=== PATIENT | male | born 1960 | race Native Hawaiian/Other Pacific Islander ===

== ENCOUNTER 2018-06-11 22:59 | Emergency (ER) | payer SELFPAY ==
[2018-06-12 01:44] LABS: Basophils # (Auto) 0.1 K/mm3 (0.0-0.1); Basophils % (Auto) 0.8 % (0.0-1.8); Eosinophils # (Auto) 0.4 K/mm3 (0.0-0.4); Eosinophils % (Auto) 4.8 % (0.0-4.3); Hematocrit 43.3 % (35.5-45.6); Hemoglobin 14.4 gm/dl (11.8-15.2); Lymphocytes # (Auto) 3.8 K/mm3 (1.2-5.4); Mean Corpuscular HGB Conc 33 % (32-34); Mean Corpuscular Hemoglobin 30 pg (28-32); Mean Corpuscular Volume 90 fl (84-94); Monocytes # (Auto) 0.6 K/mm3 (0.0-0.8); Monocytes % (Auto) 7.2 % (0.0-7.3); Red Blood Count 4.84 M/mm3 (3.65-5.03); Red Cell Distribution Width 13.8 % (13.2-15.2)
[2018-06-12 02:20] LABS: BUN/Creatinine Ratio 21; Blood Urea Nitrogen 15 mg/dL (9-20); Calcium 9.3 mg/dL (8.4-10.2); Hemolysis Index 9
--- NOTE | 2018-06-12 02:30 | Cat Scan Report ---
FINAL REPORT EXAM: CT HEAD/BRAIN WO CON HISTORY: headache TECHNIQUE: Routine axial imaging was obtained of the brain without IV contrast. FINDINGS: The ventricular system is appropriate in size and is symmetric. There is no evidence of acute stroke or hemorrhage. There are no extra-axial fluid collections. Visualized sinuses reveal mild mucosal thickening in the left maxillary sinus. The mastoid air cells are well pneumatized. The calvarium appears intact. IMPRESSION: No acute intracranial process. Mild mucosal thickening in the left maxillary sinus.
[2018-06-12 02:31] LABS: Platelet Count 131 K/mm3 (140-440)
--- NOTE | 2018-06-12 07:02 | Emergency Department Report ---
ED General Adult HPI - General Chief complaint: Hyperglycemia Stated complaint: BLOOD PRESURE UP Time Seen by Provider: 06/12/18 06:55 Source: patient Mode of arrival: Ambulatory Limitations: No Limitations - History of Present Illness Initial comments: Patient is 58 years old male with past medical history of diabetes hypertension and hyperlipidemia. Patient presented to the ER complaining of headache, increased blood pressure and increased blood sugar. Patient stated that he is out of his medication for the last 2 weeks because he does not have a primary care doctor. Denied any chest pain, shortness of breath, weakness, numbness or tingling sensation. Patient denied any bowel or bladder incontinence. Patient also denied any abdominal pain, nausea or vomiting. Severity scale (0 -10): 3 - Related Data Allergies Allergy/AdvReac Type Severity Reaction Status Date / Time No Known Allergies Allergy Unverified 06/12/18 01:17 ED Review of Systems ROS: Stated complaint: BLOOD PRESURE UP Other details as noted in HPI Comment: All other systems reviewed and negative Constitutional: denies: chills ENT: denies: ear pain Respiratory: denies: cough, orthopnea, shortness of breath, SOB with exertion, SOB at rest, wheezing Cardiovascular: denies: chest pain, palpitations, dyspnea on exertion, orthopnea , syncope, paroxysmal nocturnal dyspnea Gastrointestinal: denies: abdominal pain, nausea, vomiting, diarrhea, constipation, hematemesis, melena Neurological: headache. denies: weakness, numbness, paresthesias, confusion, abnormal gait, vertigo ED Past Medical Hx - Past Medical History Hx Hypertension: Yes Hx Diabetes: Yes - Surgical History Past Surgical History?: Yes Additional Surgical History: Left leg - Social History Smoking Status: Never Smoker Substance Use Type: None ED Physical Exam - General Limitations: No Limitations General appearance: alert, in no apparent distress - Head Head exam: Present: atraumatic, normocephalic, normal inspection - Eye Eye exam: Present: normal appearance, PERRL - ENT ENT exam: Present: normal exam, normal orophraynx, mucous membranes moist - Neck Neck exam: Present: normal inspection, full ROM. Absent: tenderness, meningismus, lymphadenopathy, thyromegaly - Respiratory Respiratory exam: Present: normal lung sounds bilaterally. Absent: respiratory distress, wheezes, rales, rhonchi, stridor, chest wall tenderness, accessory muscle use, decreased breath sounds, prolonged expiratory - Cardiovascular Cardiovascular Exam: Present: regular rate, normal rhythm, normal heart sounds - GI/Abdominal GI/Abdominal exam: Present: soft, normal bowel sounds. Absent: distended, tenderness, guarding, rebound, rigid, organomegaly, mass, bruit, pulsatile mass , hernia - Extremities Exam Extremities exam: Present: normal inspection, full ROM, normal capillary refill. Absent: pedal edema, calf tenderness - Back Exam Back exam: Present: normal inspection, full ROM - Neurological Exam Neurological exam: Present: alert, oriented X3, CN II-XII intact, normal gait, reflexes normal - Skin Skin exam: Present: warm, intact, normal color ED Course Vital Signs 06/11/18 06/12/18 06/12/18 23:05 00:59 05:39 Temperature 98.1 F 98.1 F 97.8 F Pulse Rate 66 65 54 L Respiratory 16 18 18 Rate Blood Pressure 214/82 186/77 Blood Pressure 199/76 [Left] O2 Sat by Pulse 98 98 97 Oximetry ED Medical Decision Making - Lab Data Result diagrams: 06/12/18 01:27 06/12/18 01:27 - EKG Data -: EKG Interpreted by [place] EKG shows normal: sinus rhythm Rate: normal - EKG Data Interpretation: no acute changes - Radiology Data Radiology results: report reviewed Referring Physician: TEVIN SHARMA Patient Name: IVAN BROWN Date of : 1960 Sex: Male Report Date: 2018-06-12 Report Status: [place] [address] Cat Scan Report Signed Patient: IVAN BROWN MR#: [id number] : 1960 Acct:[id number] Age/Sex: 58 / M ADM Date: 06/11/18 Loc: ED Attending Dr: Ordering Physician: TEVIN SHARMA MD Date of Service: 06/12/18 Procedure(s): CT head/brain wo con Accession Number(s): [id number] cc: TEVIN SHARMA MD FINAL REPORT EXAM: CT HEAD/BRAIN WO CON HISTORY: headache TECHNIQUE: Routine axial imaging was obtained of the brain without IV contrast. FINDINGS: The ventricular system is appropriate in size and is symmetric. There is no evidence of acute stroke or hemorrhage. There are no extra-axial fluid collections. Visualized sinuses reveal mild mucosal thickening in the left maxillary sinus. The mastoid air cells are well pneumatized. The calvarium appears intact. IMPRESSION: No acute intracranial process. Mild mucosal thickening in the left maxillary sinus. Transcribed By: RB Dictated By: AMY MARINELLI MD Electronically Authenticated By: AMY MARINELLI MD Signed Date/Time: 06/12/18228 DD/ 8 TD/TT: 06/12/18228 Critical care attestation.: If time is entered above; I have spent that time in minutes in the direct care of this critically ill patient, excluding procedure time. ED Disposition Clinical Impression: Malignant hypertension, Hyperglycemia, Headache Disposition: - TO HOME OR SELFCARE Is pt being admited?: No Condition: Stable Instructions: Hypertension (ED), Diabetic Hyperglycemia (ED) Referrals: ESCOBAR ANTOINE MD [Staff Physician] - 3-5 Days
[2018-06-12] MEDS ORDERED: CATAPRES PO ONE (07:08)
[2018-06-12 07:16] LABS: Mucus,Urine FEW /HPF
[2018-06-12 07:28] LABS: Bilirubin,Urine NEG (Negative); Blood,Urine NEG (Negative); Color,Urine Yellow (Yellow); Protein,Urine <15 mg/dL mg/dL (Negative); Urobilinogen,Urine < 2.0 mg/dL (<2.0); WBC,Urine < 1.0 /HPF (0.0-6.0)
[2018-06-12 08:44] VITALS: BP 186/84
== END 2018-06-12 09:00 | disposition home or self-care (01) ==
LOC: ED 22:59
DX: I10 Essential (primary) hypertension (principal); E11.65 Type 2 diabetes mellitus with hyperglycemia
CPT/HCPCS: 36415; 70450; 80048; 81001; 82805; 82962; 85025; 93005; 93010